=== PATIENT | female | born 2005 | race Caucasian/White ===

== ENCOUNTER 2023-10-28 00:19 | Emergency (ER) | payer OTHER ==
[2023-10-28] MEDS ORDERED: METOCLOPRAMIDE 10MG TAB PO ONE (01:15)
[2023-10-28 01:44] LABS: RSV AMPLIFICATION NEGATIVE (NEGATIVE)
[2023-10-28 02:25] VITALS: BP 129/74; TEMP 98; O2SAT 99
== END 2023-10-28 02:40 | disposition home or self-care (01) ==
LOC: M ED 00:19
DX: R11.10 Vomiting, unspecified (principal)